=== PATIENT | male | born 1965 | race American Indian/Alaskan Native ===

== ENCOUNTER 2017-09-26 09:29 | Emergency (ER) | payer SELFPAY ==
[2017-09-26 10:47] VITALS: BP 169/97
--- NOTE | 2017-09-26 11:09 | Emergency Department Report ---
ED General Adult HPI - General Chief complaint: Medical Clearance Stated complaint: PRESCRIPTION REFILLS Time Seen by Provider: 09/26/17 10:44 Source: patient Mode of arrival: Ambulatory Limitations: No Limitations - History of Present Illness Initial comments: 52-year-old male with past medical history of glaucoma,hep C,HTN came in to get his medication refills. Patient states that he's been out of his meds for a week and have him on his medications for glaucoma and his blood pressure refill. Patient also states he was to be tested for STD. Patient said he was in shelter and got out couple months ago and wants to be tested for STDs and also wants his med refills. Patient denies any nausea vomiting chest pain shortness of breath. Patient has any fever or chills. Patient denies any weight loss. Onset/Timin -: week(s) Location: genitals Radiation: non-radiation Severity scale (0 -10): 0 Improves with: none Worsens with: none Associated Symptoms: denies other symptoms. denies: confusion, chest pain, cough, diaphoresis, fever/chills, headaches, loss of appetite, malaise, nausea/ vomiting, rash, seizure, shortness of breath, syncope, weakness Treatments Prior to Arrival: none - Related Data Previous Rx's Medication Instructions Recorded Last Taken Type Amlodipine Besylate [Norvasc] 10 mg PO DAILY #20 tablet 09/26/17 Unknown Rx Dorzolamide 2% (Nf) [Trusopt] 1 drops OU BID #1 bottle 09/26/17 Unknown Rx Latanoprost 0.005% 1 drop OU QPM #1 bottle 09/26/17 Unknown Rx Timolol 0.5% [Timoptic] 1 drops OU BID #1 bottle 09/26/17 Unknown Rx Triamter/Hctz 37.5-25 mg 1 tab PO QDAY #20 tablet 09/26/17 Unknown Rx [Maxzide-25] Allergies Allergy/AdvReac Type Severity Reaction Status Date / Time No Known Allergies Allergy Unverified 09/26/17 09:33 ED Review of Systems ROS: Stated complaint: PRESCRIPTION REFILLS Other details as noted in HPI Constitutional: denies: chills, fever Eyes: denies: eye pain, eye discharge, vision change ENT: denies: ear pain, throat pain Respiratory: denies: cough, shortness of breath, wheezing Cardiovascular: denies: chest pain, palpitations Endocrine: no symptoms reported Gastrointestinal: denies: abdominal pain, nausea, diarrhea Genitourinary: denies: urgency, dysuria Musculoskeletal: denies: back pain, joint swelling, arthralgia Skin: denies: rash, lesions Neurological: denies: headache, weakness, paresthesias Psychiatric: denies: anxiety, depression Hematological/Lymphatic: denies: easy bleeding, easy bruising ED Past Medical Hx - Past Medical History Hx Hypertension: Yes Additional medical history: glaucoma, Hep C - Surgical History Past Surgical History?: No - Social History Smoking Status: Current Some Day Smoker Substance Use Type: None - Medications Home Medications: Home Medications Medication Instructions Recorded Confirmed Last Taken Type Amlodipine Besylate [Norvasc] 10 mg PO DAILY #20 tablet 09/26/17 Unknown Rx Dorzolamide 2% (Nf) [Trusopt] 1 drops OU BID #1 bottle 09/26/17 Unknown Rx Latanoprost 0.005% 1 drop OU QPM #1 bottle 09/26/17 Unknown Rx Timolol 0.5% [Timoptic] 1 drops OU BID #1 bottle 09/26/17 Unknown Rx Triamter/Hctz 37.5-25 mg 1 tab PO QDAY #20 tablet 09/26/17 Unknown Rx [Maxzide-25] ED Physical Exam - General Limitations: No Limitations General appearance: alert - Head Head exam: Present: atraumatic - Eye Eye exam: Present: normal appearance - ENT ENT exam: Present: normal exam - Neck Neck exam: Present: normal inspection - Respiratory Respiratory exam: Present: normal lung sounds bilaterally - Cardiovascular Cardiovascular Exam: Present: regular rate - GI/Abdominal GI/Abdominal exam: Present: soft - exam: Present: normal inspection (No discharge noted, no testicular pain noted, ). Absent: testicular tenderness, urethral discharge, scrotal swelling, circumcision External exam: Absent: erythema, swelling, lesions, lacerations, ecchymosis, bleeding ED Course Vital Signs 09/26/17 09/26/17 09:33 10:39 Temperature 98.2 F Pulse Rate 89 78 Respiratory 18 Rate Blood Pressure 190/110 169/97 O2 Sat by Pulse 96 99 Oximetry ED Medical Decision Making - Medical Decision Making 52 -year-old male came in for medication refill and concern for STDs. Patient wants to leave right now and does not want to stay and he'll sign out AMA. I did fill up his medications but he does not want to wait for test results. Again patient will sign out AGAINST MEDICAL ADVICE all risks including explained. Critical care attestation.: If time is entered above; I have spent that time in minutes in the direct care of this critically ill patient, excluding procedure time. ED Disposition Clinical Impression: Medication refill, Left against medical advice Disposition: LEFT AGAINST MED ADVICE Is pt being admited?: No Does the pt Need Aspirin: No Condition: Stable Prescriptions: Amlodipine Besylate [Norvasc] 10 mg PO DAILY #20 tablet Dorzolamide 2% (Nf) [Trusopt] 1 drops OU BID #1 bottle Latanoprost 0.005% 1 drop OU QPM #1 bottle Timolol 0.5% [Timoptic] 1 drops OU BID #1 bottle Triamter/Hctz 37.5-25 mg [Maxzide-25] 1 tab PO QDAY #20 tablet Referrals: PRIMARY MD DAYANARA [Primary Care Provider] - 3-5 Days JAYNE GUIDO MD [Staff Physician] - 3-5 Days
[2017-09-26 11:14] LABS: Bilirubin,Urine NEG (Negative); Blood,Urine NEG (Negative); Color,Urine Yellow (Yellow); Mucus,Urine FEW /HPF; Protein,Urine <15 mg/dL mg/dL (Negative); WBC,Urine < 1.0 /HPF (0.0-6.0)
== END 2017-09-26 12:23 | disposition left against medical advice (07) ==
LOC: ED 09:29
DX: Z76.0 Encounter for issue of repeat prescription (principal); I10 Essential (primary) hypertension; Z72.0 Tobacco use
CPT/HCPCS: 81001; 99283

== ENCOUNTER 2017-11-07 13:27 | Emergency (ER) | payer SELFPAY ==
--- NOTE | 2017-11-07 17:23 | Emergency Department Report ---
Abscess Boil HPI - HPI Chief Complaint: Skin/Abscess/Foreign Body Stated Complaint: BOIL ON BUTTOCK/POSS INFECTION/PAIN Time Seen by Provider: 11/07/17 16:59 Duration: 1 Week Location: Perianal Severity: Moderate History: Yes Pain, Yes Purulent Drainage, No Fever, No Numbness, No Foreign Body , No Previous History, No Insect Bite HPI: This is a 52-year-old -[place] male who presents with an abscess to right buttock for one week. Patient reports abscess burst Thursday while in the [employer] salt bath. States it continues to drain purulent malodorous drainage requiring him to wear a diaper. Denies a history of abscess. He told his sister about his symptoms and she gave him antibiotics and ibuprofen Thursday, which he has been taking daily with no improvement of symptoms. Denies fever, numbness or tingling, nausea or vomiting, chest pain. He is having difficulty sitting secondary pain. He did notice swelling decreased but pain remains. Home Medications: Previous Rx's Medication Instructions Recorded Last Taken Type Amlodipine Besylate [Norvasc] 10 mg PO DAILY #20 tablet 09/26/17 Unknown Rx Dorzolamide 2% (Nf) [Trusopt] 1 drops OU BID #1 bottle 09/26/17 Unknown Rx Latanoprost 0.005% 1 drop OU QPM #1 bottle 09/26/17 Unknown Rx Timolol 0.5% [Timoptic] 1 drops OU BID #1 bottle 09/26/17 Unknown Rx Triamter/Hctz 37.5-25 mg 1 tab PO QDAY #20 tablet 09/26/17 Unknown Rx [Maxzide-25] Acetaminophen/Codeine [Tylenol 1 tab PO Q6H PRN #12 tab 11/07/17 Unknown Rx /Codeine # 3 tab] Ibuprofen [Motrin 800 MG tab] 800 mg PO Q8HR PRN #15 tablet 11/07/17 Unknown Rx Sulfamethoxazole/Trimethoprim 1 each PO BID 10 Days #20 tablet 11/07/17 Unknown Rx [Bactrim DS TAB] Allergies/Adverse Reactions: Allergies Allergy/AdvReac Type Severity Reaction Status Date / Time No Known Allergies Allergy Verified 11/07/17 13:34 ED Review of Systems ROS: Stated complaint: BOIL ON BUTTOCK/POSS INFECTION/PAIN Other details as noted in HPI Constitutional: denies: chills, fever Respiratory: denies: cough, shortness of breath, wheezing Cardiovascular: denies: chest pain, palpitations Gastrointestinal: denies: abdominal pain, nausea, vomiting, diarrhea Skin: lesions (abscess to right buttock). denies: rash Neurological: denies: headache, weakness, numbness, paresthesias Psychiatric: denies: anxiety, depression ED Past Medical Hx - Past Medical History Hx Hypertension: Yes Additional medical history: glaucoma, Hep C - Social History Smoking Status: Current Every Day Smoker Substance Use Type: None - Medications Home Medications: Home Medications Medication Instructions Recorded Confirmed Last Taken Type Amlodipine Besylate [Norvasc] 10 mg PO DAILY #20 tablet 09/26/17 Unknown Rx Dorzolamide 2% (Nf) [Trusopt] 1 drops OU BID #1 bottle 09/26/17 Unknown Rx Latanoprost 0.005% 1 drop OU QPM #1 bottle 09/26/17 Unknown Rx Timolol 0.5% [Timoptic] 1 drops OU BID #1 bottle 09/26/17 Unknown Rx Triamter/Hctz 37.5-25 mg 1 tab PO QDAY #20 tablet 09/26/17 Unknown Rx [Maxzide-25] Acetaminophen/Codeine [Tylenol 1 tab PO Q6H PRN #12 tab 11/07/17 Unknown Rx /Codeine # 3 tab] Ibuprofen [Motrin 800 MG tab] 800 mg PO Q8HR PRN #15 tablet 11/07/17 Unknown Rx Sulfamethoxazole/Trimethoprim 1 each PO BID 10 Days #20 tablet 11/07/17 Unknown Rx [Bactrim DS TAB] ED Abscess Boil Physical Exam - Exam General: Vital signs noted. No distress. Alert and acting appropriately. Front/Back of Body, Lg (Color): 1 - 2 cm erythematous area, active purulent discharge, tenderness, nonfluctuance, no surrounding cellulitis Size: 2 cm Exam: Yes Tenderness, Yes Normal Neurologic Exam, Yes Normal Circulation, No Fluctuance, No Surrounding Cellulites/Erythema, No Lymphangitis, No Crepitation , No Heart Murmur ED Course Vital Signs 11/07/17 13:34 Temperature 98.4 F Pulse Rate 97 H Respiratory 16 Rate Blood Pressure 111/61 O2 Sat by Pulse 100 Oximetry Critical care attestation.: If time is entered above; I have spent that time in minutes in the direct care of this critically ill patient, excluding procedure time. ED Medical Decision Making - Medical Decision Making This is a 52 y.o. male that presents with a painful abscess to right buttock that has drained 1 week ago. No history of prior abscess. He is taking sister antibiotics, unknown name and dose. Patient is stable and examined by me. Abscess has drained and continues to drain purulent discharge, tissue is soft and nonfluctuant. No acute signs of distress noted. Given norco 5/325 mg po once in ER. Discussed plan to start bactrim DS, tylenol #3, and ibuprofen with patient. Educated patient on follow up plan with PCP for wound reassessed in 3- 5 days. Patient agrees to ED plan of care. Discharged home and follow up with PCP. ED Disposition Clinical Impression: Abscess of buttock, right Disposition: DC-01 TO HOME OR SELFCARE Is pt being admited?: No Does the pt Need Aspirin: No Condition: Stable Instructions: Abscess (ED), Abscess Incision and Drainage (ED) Additional Instructions: F/U with PCP to have wound reassessed in 3-5 days. Complete full round of bactrim DS antibiotic as prescribed. Follow up with PCP in 2-3 days. Return to ER if foul smelling discharge, swelling, or severe pain to wound. Prescriptions: Acetaminophen/Codeine [Tylenol /Codeine # 3 tab] 1 tab PO Q6H PRN #12 tab PRN Reason: Pain , Severe (7-10) Ibuprofen [Motrin 800 MG tab] 800 mg PO Q8HR PRN #15 tablet PRN Reason: Pain, Moderate (4-6) Sulfamethoxazole/Trimethoprim [Bactrim DS TAB] 1 each PO BID 10 Days #20 tablet Referrals: [facility] [Outside] - 3-5 Days [facility] [Outside] - 3-5 Days [facility] [Outside] - 3-5 Days Time of Disposition: 18:05 Print Language: HEBREW
[2017-11-07] MEDS ORDERED: NORCO 5/325 PO ONE (18:02)
[2017-11-07 18:18] VITALS: BP 136/76
== END 2017-11-07 18:16 | disposition home or self-care (01) ==
LOC: ED 13:27
DX: L02.31 Cutaneous abscess of buttock (principal); I10 Essential (primary) hypertension; F17.200 Nicotine dependence, unspecified, uncomplicated
CPT/HCPCS: 99282

== ENCOUNTER 2021-01-02 11:34 | Day surgery (SDC) | payer MEDICAID ==
[~2021-01-02 11:34] MED LIST: LACTATED RINGERS 1,000 ML IV SCH; MIDAZOLAM 2 MG/2 ML INJ IV NR
--- NOTE | 2021-01-02 13:08 | Anesthesia Consultation ---
Anesthesia Consult and Med Hx Date of service: 01/02/21 - Airway Anesthetic Teeth Evaluation: Good ROM Head & Neck: Adequate Mental/Hyoid Distance: Adequate Mallampati Class: Class III Intubation Access Assessment: Possibly Difficult - Pre-Operative Health Status ASA Pre-Surgery Classification: ASA2 Proposed Anesthetic Plan: General - Pulmonary Hx Smoking: Yes (QUIT 07/22) Hx Respiratory Symptoms: No - Cardiovascular System Hx Hypertension: Yes (took amlodipine today) Hx Heart Attack/AMI: No - Central Nervous System CVA: No - Endocrine Hx Renal Disease: No Hx Liver Disease: Yes (HCV s/p treatment/cure) Hx Non-Insulin Dependent Diabetes: No ("borderline," no meds) Hx Thyroid Disease: No - Additional Comments Anesthesia Medical History Comments: No prior GA. No FHx anesthetic complications.
[2021-01-02] MEDS ORDERED: ONDANSETRON 4 MG/2 ML INJ IV PRN (13:09)
[2021-01-02] MEDS ORDERED: HYDROcodone/ACETAMINOPHEN 5-325 MG TAB PO PRN (13:09)
--- NOTE | 2021-01-02 13:09 | Anesthesia Day of Surgery ---
Anesthesia Day of Surgery - Day of Surgery Patient Examined: Yes Patient H&P Reviewed: Yes Patient is NPO: Yes
[2021-01-02] MEDS ORDERED: LIDOCAINE PF 100 MG/5 ML (CARDIAC SYRINGE) IV ONE (14:21)
[2021-01-02] MEDS ORDERED: fentaNYL 100 MCG/2 ML INJ ONE (14:22)
[2021-01-02] MEDS ORDERED: propofoL 200 MG/20 ML VIAL IV ONE (14:22)
[2021-01-02] MEDS ORDERED: ONDANSETRON 4 MG/2 ML INJ ONE (14:30)
[2021-01-02] MEDS ORDERED: dexAMETHasone 20 MG/5 ML VIAL ONE (14:30)
[2021-01-02] MEDS: HYDROmorphone 1 MG/1 ML INJ IV PRN ×2 (15:55→16:05)
[2021-01-02] MEDS ORDERED: oxyCODONE /ACETAMINOPHEN 5-325MG TAB PO PRN (16:13)
[2021-01-02 16:18] VITALS: BP 135/85
--- NOTE | 2021-01-02 17:41 | Post Anesthesia Evaluation ---
- Post Anesthesia Evaluation Patient Participated: Yes Airway Patent: Yes Stable Respiratory Function: Yes Nausea/Vomiting: No Temp > 96.8F: Yes Pain Manageable: Yes Adequeate Hydration: Yes Anesthesia Complications: No
--- NOTE | 2021-01-22 21:07 | Operative Report ---
DATE OF SURGERY: 01/02/2021 PREOPERATIVE DIAGNOSIS: Phimosis. POSTOPERATIVE DIAGNOSIS: Phimosis. OPERATIVE PROCEDURE: Circumcision. ATTENDING: Quinton Yoder MD. LONG WINDER TENDER: None. ANESTHESIA: General. ESTIMATED BLOOD LOSS: 10 mL. SPECIMENS: Foreskin. DRAINS: None. COMPLICATIONS: None. INDICATIONS FOR PROCEDURE: The patient is a 55-year-old man with phimosis. After discussion of the risks, benefits and alternatives, he wished to proceed with a circumcision. DESCRIPTION OF PROCEDURE IN DETAIL: After induction of suitable anesthesia and proper positioning and preparation in the supine position, 2 hemostats were used to grasp the patient's foreskin and placed them on stretch. The foreskin was marked out in relation to the glans penis. The glans penis was pushed down and a Soila clamp was used to crush the excess foreskin tissue in a complete transverse manner. A Bovie electrocautery was then used to amputate the excess skin below the Soila clamp. The glans penis was unharmed in examining the result after that amputation. The patient still had excess skin and hemostats were used to place the excess penile skin on stretch. The procedure was repeated and the excess skin was amputated with Bovie electrocautery. Again, care was taken to protect the glans penis. Hemostasis was then diligently achieved in the dartos layer. There was no evidence of any bleeding. The penile skin was then reapproximated to the cuff of the glans penis. Stay sutures were placed with 3-0 Vicryls at the 12 o'clock, 3 o'clock, 6 o'clock, and 9 o'clock positions. The running chromic was used in between each quadrant and then tied to the stay suture. A new chromic was used for each quadrant and then tied to the stay sutures. There was an excellent cosmetic result and there was complete hemostasis. A dressing was applied. The patient was then awakened from anesthesia and transported to the recovery room in stable condition. He tolerated the procedure well. TID: [id number] RECEIPT: [id number] GILBERT/WILLY
== END 2021-01-02 17:25 | disposition home or self-care (01) ==
LOC: OR 11:34
PROVIDERS: ATTEND Urology
PROC: 0VTTXZZ Resection of Prepuce, External Approach (ICD-10-PCS; principal; 2021-01-02)
DX: N47.1 Phimosis (principal); I10 Essential (primary) hypertension; K21.9 Gastro-esophageal reflux disease without esophagitis; Z87.891 Personal history of nicotine dependence; Z79.899 Other long term (current) drug therapy; Z98.890 Other specified postprocedural states; Z72.89 Other problems related to lifestyle
CPT/HCPCS: 54150; 88304; J1100; J1170; J2001; J2250; J2405; J2704; J3010; J7120